=== PATIENT | female | born 1995 | race African-American/Black ===

== ENCOUNTER 2020-11-22 10:19 | Emergency (ER) | payer OTHER, SELFPAY ==
[2020-11-22 10:36] VITALS: BP 124/78; PULSE 88; RESP 16; TEMP 37.1; O2SAT 99
--- NOTE | 2020-11-22 11:04 | ED.URI ---
HPI - URI/Sore Throat General Chief Complaint: Upper Respiratory Infection Stated Complaint: Sore Throat,Ear Pain Source: patient and RN notes reviewed Limitations: no limitations History of Present Illness HPI Narrative: The patient, a non-smoker/occasional drinker, presents with sore throat. Patient states she has a shorter couple day history of sore throat, chills and myalgias with headache. No fever measured, cough, rash, nausea/vomiting now-but she did have emesis after drinking Saturday night. Symptoms are mild, worse with eating. [id number] strep testing is positive; she is not Covid vaccinated and declines available Covid testing. Related Data Allergies Allergy/AdvReac Type Severity Reaction Status Date / Time No Known Allergies Allergy Verified 11/22/20 11:04 Review of Systems Review of Systems: Narrative: General/Constitutional: No weight loss, POSSIBLE fever Eyes: N0: Redness,discharge Ears/Nose/Throat: No: Epistaxis,ear discharge Respiratory: Denies: Hemoptysis Gastrointestinal: No Vomiting, Bleeding-rectal Skin: No Lumps, eruption Neurologic: No Focal Weakness,Sz Hematologic: Denies: Petechiae/Purpura Psychiatric: No: Suicida ideationl All Other Systems: Reviewed and Negative PMFSH Comments At time of signature, agree with nursing past medical, surgical, social and family history. There is no relevant family history pertinent to the presenting complaint Exam Narrative: Exam Narrative: General Appearance: Well appearing, Well nourished EYE: PERRLA, Conjunctiva clear Ears: Auditory canal normal, TM normal Nose: Rhinorrhea, Mucousal erythema Mouth/Throat: MM moist, Uvula midline, Pharyngeal erythema with rare exudate on left Neck: Supple, No adenopathy Respiratory: No respiratory distress, Breath sounds equal, Cardiovascular: RRR, No JVD Musculoskeletal: Non tender, Normal strength Skin: Warm, Dry Neurological: A&O x3, CN II-XII intact Psychiatric: Normal mood, Normal affect Course Vital Signs Vital signs: Vital Signs Temperature 98.8 F 11/22/20 10:36 Pulse Rate 88 11/22/20 10:36 Respiratory Rate 16 11/22/20 10:36 Blood Pressure 124/78 11/22/20 10:36 Pulse Oximetry 99 11/22/20 10:36 Temperature 98.8 F 11/22/20 10:36 Pulse Rate 88 11/22/20 10:36 Respiratory Rate 16 11/22/20 10:36 Blood Pressure 124/78 11/22/20 10:36 Pulse Oximetry 99 11/22/20 10:36 MDM - URI/Sore Throat Lab Data Labs: Strep Screen Positive Group A Strep *(Reference Range: Negative)* Discharge Plan Discharge Clinical Impression: Pharyngitis Qualifiers: Pharyngitis/tonsillitis etiology: streptococcus Qualified Code(s): J02.0 - Streptococcal pharyngitis Patient Disposition: Home, Self-Care Condition: Stable Instructions: Strep Throat (ED) Prescriptions: New amoxicillin 875 mg tablet 875 mg PO Q12H Qty: 20 RF: 0 lidocaine HCl [Lidocaine Viscous] 2 % solution 5 ml MUCOUS MEM QID PRN (Reason: pain) Qty: 100 RF: 0 Follow-up/Referrals: PHYSICIAN,[employer]CR[employer] [Primary Care Provider] - Stand Alone Forms: Work/School Release IP
== END 2020-11-22 11:11 | disposition home or self-care (01) ==
PROVIDERS: Emergency Provider Emergency Medicine
DX: J02.0 Streptococcal pharyngitis (principal); E28.2 Polycystic ovarian syndrome
CPT/HCPCS: 87880; 99203; G0463